=== PATIENT | female | born 1975 | race Asian ===

== ENCOUNTER → 2023-12-01 13:59 | Outpatient (REF) | payer BC, SELFPAY | LOC: HWWDC 13:59 | PROVIDERS: ATTENDING PHYSICIAN Family Medicine; REFERRING PHYSICIAN Obstetrics & Gynecology Gynecology | DX: Z12.31 Encounter for screening mammogram for malignant neoplasm of breast (principal) | CPT/HCPCS: 77063; 77067 ==

== ENCOUNTER 2024-05-17 06:25 | Day surgery (SDC) | payer BC, SELFPAY ==
[2024-05-17 07:14] LABS: Glucose - Point of Care 140 mg/dl (70-99)
== END 2024-05-17 09:24 | disposition home or self-care (01) ==
LOC: GI 06:25
PROVIDERS: ATTENDING PHYSICIAN Student in an Organized Health Care Education/Training Program
DX: Z12.11 Encounter for screening for malignant neoplasm of colon (principal); K63.5 Polyp of colon
CPT/HCPCS: 45380; 88305; 82962